=== PATIENT | male | born 1970 | race African-American/Black ===

== ENCOUNTER 2019-07-23 12:07 | Emergency (ER) | payer SELFPAY ==
--- NOTE | 2019-07-23 12:55 | PDOC ---
History of Present Illness - General Chief Complaint: Pain Stated Complaint: CHEST PAIN Time Seen by Provider: 07/23/19 12:33 - History of Present Illness Initial Comments: 07/23/19 17:43 Pt is a 49 y/o M with no significant past medical history who presents to our Emergency Department for abdominal pain. Pt endorses pain began Friday and is described as intermittent, 6/10 in severity, and better with eating. Pain is located in right upper quadrant. Pt states he has had similar pain in the past where he was diagnosed with a stomach ulcer. Past History - Past Medical History Allergies/Adverse Reactions: Allergies Allergy/AdvReac Type Severity Reaction Status Date / Time No Known Allergies Allergy Verified 07/23/19 12:22 Home Medications: Ambulatory Orders NK [No Known Home Medication] 07/23/19 COPD: No - Psycho Social/Smoking Cessation Hx Smoking History: Never smoked *Physical Exam - Vital Signs Last Vital Signs Temp Pulse Resp BP Pulse Ox 97.5 F L 65 18 119/67 99 07/23/19 12:19 07/23/19 12:19 07/23/19 12:19 07/23/19 12:19 07/23/19 12:19 Heart Score/ECG Review - ECG Impressions Comment:: 07/23/19 19:00 Rate 58 bp. Nl intervals, no St-T wave elevations/depressions. QTc 378. ED Treatment Course - LABORATORY CBC & Chemistry Diagram: 07/23/19 13:26 07/23/19 13:26 Medical Decision Making - Medical Decision Making 07/23/19 13:39 Will order cbc w/ diff, CMP, Cardiac Profile, protonix 40 once, Ofirmev for pain. DDX includes but not limited to duodenal ulcer, peptic ulcer, M.I, 07/23/19 17:45 Late entry: Troponin negative. Abdominal U/S--> Almost borderline thickening of gallbladder wall likely due to Discharge - Discharge Information Problems reviewed: Yes Clinical Impression/Diagnosis: Abdominal pain Condition: Improved Disposition: HOME - Admission No - Follow up/Referral Referrals: Abdoulaye Rao MD [Staff Physician] - Harish Hernadez MD [Staff Physician] - - Patient Discharge Instructions Patient Printed Discharge Instructions: DI for Abdominal Pain-Adult Additional Instructions: You were seen in the emergency department for abdominal pain. You were found to have some abnormalities with your gallbladder. Please follow up with a Surgeon. A referral has been provided for you in your discharge paperwork. Please follow up with your primary care doctor in 1 week. If you do not have a primary care doctor, you may follow up with our [facility] located at [address] [place] [address]. [phone] You may take Pepcid medication which is over the counter. Please take this medication as prescribed. Please come to the emergency department if you begin to experience fever, chest pain, shortness of breath, or any other abnormal symptoms. - Post Discharge Activity
[2019-07-23] MEDS ORDERED: PANTOPRAZOLE SODIUM 40 MG VIAL IVPUSH ONE (12:56)
[2019-07-23] MEDS ORDERED: ACETAMINOPHEN 1000 MG/100 ML VIAL (NON FORMULARY) IVPB ONE (12:56)
[2019-07-23] MEDS ORDERED: SODIUM CHLORIDE 1,000 ML IV ONE (12:57)
[2019-07-23] MEDS ORDERED: FAMOTIDINE 20 MG/50 ML IVPB 20 MG/50 ML MG IVPB ONE (13:15)
[2019-07-23 13:37] LABS: BASO % 1.1 % (0-2.0); EOS % 3.8 % (0-4.5); HEMATOCRIT 41.2 % (35.4-49); HEMOGLOBIN 13.1 GM/dL (11.7-16.9); LYMPH % 40.1 % (8-40); MCH 23.5 pg (25.7-33.7); MCHC 31.7 g/dl (32.0-35.9); MEAN CELL VOLUME 73.9 fl (80-96); MEAN PLT VOLUME 8.4 fl (7.5-11.1); MONO % 6.5 % (3.8-10.2); NEUT % 48.5 % (42.8-82.8); PLATELET COUNT 185 K/MM3 (134-434); RBC 5.58 M/mm3 (4.00-5.60); RDW 14.8 % (11.9-15.9); WHITE BLOOD COUNT 3.9 K/mm3 (4.0-10.0)
[2019-07-23] MEDS ORDERED: ACETAMINOPHEN 500 MG TABLET (FP) PO ONE (13:49)
[2019-07-23 14:15] LABS: ALBUMIN 3.8 g/dl (3.4-5.0); ALK PHOS 77 U/L (45-117); ANION GAP 3 MMOL/L (8-16); BILIRUBIN,TOTAL 0.2 mg/dL (0.2-1); BLOOD UREA NITROGEN 10.3 mg/dL (7-18); CALCIUM 9.4 mg/dL (8.5-10.1); CHLORIDE 106 mmol/L (98-107); CO2 29 mmol/L (21-32); CREATININE 1.1 mg/dL (0.55-1.3); GLUCOSE,RANDOM 86 mg/dL (74-106); POTASSIUM 4.4 mmol/L (3.5-5.1); SGOT/AST 10 U/L (15-37); SGPT/ALT 18 U/L (13-61); SODIUM 139 mmol/L (136-145); TOT PROT 7.1 g/dl (6.4-8.2)
--- NOTE | 2019-07-23 15:01 | PDOC ---
Documentation entered by Talha Cadena SCRIBE, acting as scribe for Mini Simpson MD. Mini Simpson MD: This documentation has been prepared by the Tammi murray Nirvannie, SCRIBE, under my direction and personally reviewed by me in its entirety. I confirm that the documentation accurately reflects all work, treatment, procedures, and medical decision making performed by me. Attending Attestation - Resident Resident Name: Jeffry Navarro - ED Attending Attestation I have performed the following: I have examined & evaluated the patient, The case was reviewed & discussed with the resident, I agree w/resident's findings & plan - HPI HPI: 07/23/19 15:13 The patient is a 49 year old male, with no significant past medical history, who presents to the emergency department with, 3 days of progressively worsening epigastric pain. Patient notes the pain is improved with eating. He denies any recent fevers, chills, headache or dizziness. He denies any recent nausea, vomit, diarrhea or constipation. He denies any recent shortness of breath. Allergies: NKDA - Physicial Exam PE: 07/23/19 14:39 GENERAL: The patient is in no acute distress. ENT: Ears normal, nares patent, oropharynx clear without exudates. Moist mucous membranes. NECK: Normal range of motion, supple LUNGS: Breath sounds equal, clear to auscultation bilaterally. No wheezes, and no crackles. HEART:Regular rate and rhythm, normal S1 and S2 without murmur, rub or gallop. ABDOMEN: Soft, epigastric and right upper quadrant tenderness, no abdominal distention no lower abdominal tenderness no voluntary guarding no rebound EXTREMITIES: Normal range of motion, no edema. NEUROLOGICAL: Cranial nerves II through XII grossly intact. Normal speech. No focal neurological deficits. SKIN: Warm, Dry, normal turgor, no rashes or lesions noted. - Medical Decision Making 07/23/19 14:40 49 yo M presenting to the emergency department with a complaint of epigastric pain Patient states he has had the symptoms for the past 3 days. Initially pain was minimal and then progressively worsened. He has she denies nausea, vomiting. States he is able to tolerate p.o., and when he eats his pain improves. After this pain recurs. 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 No fevers, chills. No actual chest pain. No diarrhea Differential diagnosis includes but is not limited to: Gastritis, peptic ulcer disease, pancreatitis, biliary colic We will do: Labs EKG Antacid Reassess Please note: Pt has refused IV placement EKG: Normal sinus rhythm, rate of 58 bpm, axis is normal, intervals are normal, no ST elevations or depressions, T waves are upright 07/23/19 14:48 Laboratory Tests 07/23/19 07/23/19 07/23/19 13:26 13:26 13:26 WBC 3.9 L Hgb 13.1 Hct 41.2 Plt Count 185 BUN 10.3 Creatinine 1.1 Creatine Kinase 105 Troponin I < 0.02 Lipase 478 H Ultrasound demonstrates borderline thickening of the gallbladder wall, partially decompressed gallbladder Patient adamant about going home We will give patient copies of his results Will need to follow-up with his primary care physician Return to the ER for any other concerns or complaint
[2019-07-23] MEDS ORDERED: ACETAMINOPHEN 325 MG TABLET (FP) ONE (15:11)
[2019-07-23] MEDS ORDERED: PANTOPRAZOLE 40 MG TABLET (FP) ONE (15:57)
[2019-07-23] MEDS ORDERED: PANTOPRAZOLE 40 MG TABLET (FP) PO ONE (16:03)
[2019-07-23 18:14] VITALS: BP 110/71; PULSE 74; TEMP 98.4
--- NOTE | 2019-07-28 12:14 | EKG ---
Test Reason : Blood Pressure : / mmHG Vent. Rate : 058 BPM Atrial Rate : 058 BPM P-R Int : 148 ms QRS Dur : 084 ms QT Int : 386 ms P-R-T Axes : 067 060 045 degrees QTc Int : 378 ms SINUS BRADYCARDIA OTHERWISE NORMAL ECG NO PREVIOUS ECGS AVAILABLE Confirmed by CHARI PIMENTEL, CARMINE ([id number]) on 07/28/2019 12:13:52 PM Referred By: Confirmed By:CARMINE MARCELINO MD
== END 2019-07-23 18:34 | disposition home or self-care (01) ==
LOC: JER 12:07
DX: K82.8 Other specified diseases of gallbladder (principal)
CPT/HCPCS: 36415; 76705-TC; 80053; 82550; 83690; 84484; 85025; 93005; 93010; 99282-25

== ENCOUNTER 2020-05-09 17:01 | Emergency (ER) | payer OTHER ==
[2020-05-09] MEDS ORDERED: AZITHROMYCIN 500 MG TABLET PO ONE (17:15)
--- NOTE | 2020-05-09 17:15 | PDOC ---
Rapid Medical Evaluation Time Seen by Provider: 05/09/20 17:12 Medical Evaluation: Allergies Allergy/AdvReac Type Severity Reaction Status Date / Time No Known Allergies Allergy Verified 05/09/20 17:12 05/09/20 17:12 HPI: 50 year old male stating he has chlamydia. pt was treated partner was not and they had intercourse again PE: Differed A/P: GC testing treatment Pt to precede to ED for further evaluation and treatment.
[2020-05-09 17:20] VITALS: BP 116/74; PULSE 90; TEMP 98.2; BMI 18.8
[2020-05-09] MEDS ORDERED: AZITHROMYCIN 250 MG TABLET ONE (17:32)
--- NOTE | 2020-05-09 17:37 | PDOC ---
History of Present Illness - General Chief Complaint: Pain Stated Complaint: SICK Time Seen by Provider: 05/09/20 17:12 - History of Present Illness Initial Comments: 05/09/20 17:36 50-year-old male without comorbidities presents for evaluation of re-exposure to chlamydia. He is refused HIV and syphilis testing Past History - Medical History Allergies/Adverse Reactions: Allergies Allergy/AdvReac Type Severity Reaction Status Date / Time No Known Allergies Allergy Verified 05/09/20 17:12 Home Medications: Ambulatory Orders NK [No Known Home Medication] 07/23/19 COPD: No - Immunization History Immunization Up to Date: Yes - Psycho-Social/Smoking History Smoking History: Current every day smoker Information on smoking cessation initiated: No - Substance Abuse Hx (Audit-C & DAST Scrn) How often the patient has a drink containing alcohol: Never Score: In Men: 4 or > Positive; In Women: 3 or > Positive: 0 Screen Result (Pos requires Nsg. Audit-10AR): Negative In the last yr the pt used illegal drug/Rx for NonMed reason: No Score: Yes response is considered Positive: 0 Screen Result (Positive result requires Nsg. DAST-10): Negative Review of Systems - Review of Systems Constitutional: No: Fever : No: Discharge *Physical Exam - Vital Signs Last Vital Signs Temp Pulse Resp BP Pulse Ox 98.2 F 90 20 116/74 100 05/09/20 17:13 05/09/20 17:13 05/09/20 17:13 05/09/20 17:13 05/09/20 17:13 - Physical Exam General Appearance: Yes: Nourished, Appropriately Dressed HEENT: positive: Symmetrical Neck: positive: Supple Respiratory/Chest: positive: Normal Breath Sounds. negative: Respiratory Distress Musculoskeletal: positive: Normal Inspection Extremity: positive: Normal Inspection Integumentary: positive: Normal Color Medical Decision Making - Medical Decision Making 05/09/20 17:37 I have reviewed the pathophysiology with the patient. They are in agreement with the treatment plan all questions were answered to their satisfaction. Understanding for follow-up without fail was also conveyed to the patient. Again they are in agreement. Discharge - Discharge Information Problems reviewed: Yes Clinical Impression/Diagnosis: STD exposure Condition: Stable Disposition: HOME - Admission No - Follow up/Referral Referrals: Maximo Hancock MD [Staff Physician] - - Patient Discharge Instructions Additional Instructions: You were treated for gonorrhea and chlamydia today. You refused HIV and syphilis testing. Return to the emergency room for further issues and without fail follow-up with your primary care physician in 1 to 2 days for further evaluation and treatment options. - Post Discharge Activity
[2020-05-09 17:48] LABS: EPI CELLS 2 /uL (0-25.1); HYALINE CASTS 0 /uL (0-3.1); PH,URINE 8.5 (5.0-8.0); URINE APPEARANCE TURBID; URINE BACTERIA 15 /uL (0-1359); URINE BILIRUBIN NEGATIVE (NEGATIVE); URINE COLOR YELLOW; URINE GLUCOSE (UA) NEGATIVE (NEGATIVE); URINE KETONE TRACE (NEGATIVE); URINE LEUK ESTERASE TRACE (NEGATIVE); URINE NITRITE NEGATIVE (NEGATIVE); URINE PROTEIN NEGATIVE (NEGATIVE); URINE RBC 34 /uL (0-23.9); URINE UROBILINOGEN 0.2 mg/dL (0.2-1.0); URINE WBC 2 /uL (0-25.8)
== END 2020-05-09 17:44 | disposition home or self-care (01) ==
LOC: JERFT 17:01 → JER 17:01 → JERFT 17:44
DX: Z20.2 Contact with and (suspected) exposure to infections with a predominantly sexual mode of transmission (principal)
CPT/HCPCS: 36415; 81003; 87491; 87591; 99284-25

== ENCOUNTER 2020-08-24 13:54 | Emergency (ER) | payer OTHER ==
[2020-08-24 14:13] VITALS: BP 114/74; PULSE 80; TEMP 98; BMI 24.2
[2020-08-24] MEDS ORDERED: AZITHROMYCIN 500 MG TABLET PO ONE (15:15)
[2020-08-24] MEDS ORDERED: AZITHROMYCIN 250 MG TABLET ONE (15:18)
[2020-08-24 15:24] LABS: PH,URINE 6.5 (5.0-8.0); URINE APPEARANCE CLEAR; URINE BILIRUBIN NEGATIVE (NEGATIVE); URINE COLOR YELLOW; URINE GLUCOSE (UA) NEGATIVE (NEGATIVE); URINE KETONE NEGATIVE (NEGATIVE); URINE LEUK ESTERASE NEGATIVE (NEGATIVE); URINE NITRITE NEGATIVE (NEGATIVE); URINE PROTEIN NEGATIVE (NEGATIVE); URINE UROBILINOGEN 0.2 mg/dL (0.2-1.0)
== END 2020-08-24 15:25 | disposition home or self-care (01) ==
LOC: JERFT 13:54
DX: Z20.2 Contact with and (suspected) exposure to infections with a predominantly sexual mode of transmission (principal)
CPT/HCPCS: 36415; 81003; 87086; 87491; 87591; 99284-25

== ENCOUNTER 2022-06-04 11:33 | Emergency (ER) | payer OTHER ==
[2022-06-04 11:54] VITALS: BP 108/67; PULSE 76; RESP 18; TEMP 98.1; BMI 21.9
[2022-06-04] MEDS ORDERED: SODIUM CHLORIDE 0.9% 500 ML INFUS.BAG IV ONE (13:00)
[2022-06-04 14:31] LABS: BASO % 0.5 % (0-2.0); EOS % 1.6 % (0-4.5); HEMATOCRIT 42.8 % (35.4-49); HEMOGLOBIN 13.2 GM/dL (11.7-16.9); LYMPH % 51.9 % (8-40); MCH 22.9 pg (25.7-33.7); MCHC 30.9 g/dl (32.0-35.9); MEAN CELL VOLUME 74.1 fl (80-96); MEAN PLT VOLUME 8.9 fl (7.5-11.1); MONO % 7.5 % (3.8-10.2); NEUT % 38.5 % (42.8-82.8); PLATELET COUNT 192 10^3/uL (134-434); RBC 5.78 M/mm3 (4.00-5.60); RDW 14.7 % (11.9-15.9); WHITE BLOOD COUNT 3.6 K/mm3 (4.0-10.0)
[2022-06-04 14:50] LABS: ALBUMIN 3.9 g/dl (3.4-5.0); BLOOD UREA NITROGEN 14.2 mg/dL (7-18); MAGNESIUM 2.1 mg/dL (1.8-2.4)
[2022-06-04 14:53] LABS: CREATININE 1.1 mg/dL (0.55-1.3)
[2022-06-04 14:55] LABS: BILIRUBIN,TOTAL 0.3 mg/dL (0.2-1); TOT PROT 7.3 g/dl (6.4-8.2)
== END 2022-06-04 15:51 | disposition home or self-care (01) ==
LOC: JER 11:33
DX: R00.2 Palpitations (principal)
CPT/HCPCS: 36415; 71046-TC-FY; 80053; 83735; 84439; 84443; 84484; 85025; 93005; 93010; 99285-25